=== PATIENT | female | born 2000 | race African-American/Black ===

== ENCOUNTER 2025-08-14 06:23 | Day surgery (SDC) | payer BC, SELFPAY | END 2025-08-14 16:10 | disposition home or self-care (01) | LOC: GI 06:23 | PROVIDERS: ATTENDING PHYSICIAN Internal Medicine Gastroenterology | DX: K64.9 Unspecified hemorrhoids (principal); K51.00 Ulcerative (chronic) pancolitis without complications | CPT/HCPCS: 45380; 88305; 88342 ==